=== PATIENT | male | born 1965 | race African-American/Black ===

== ENCOUNTER 2018-08-05 11:27 | Observation (INO) | payer OTHER ==
[~2018-08-05] VITALS: Ht 165.1 cm; Wt 81.7 kg
[~2018-08-05 11:27] MED LIST: [UNRECOGNIZED DRUG - REMARK] PO
[2018-08-05 12:21] LABS: BASOPHILS # (AUTO) 0.04 x10^3/uL (0-0.1); BASOPHILS % (AUTO) 1 % (0-1); EOSINOPHILS # (AUTO) 0.06 x10^3/uL (0-0.4); EOSINOPHILS % (AUTO) 1 % (1-7); LYMPHOCYTES # (AUTO) 1.46 x10^3/uL (1-3.4); LYMPHOCYTES % (AUTO) 31 % (22-44); MD NO; MEAN CORPUSCULAR HGB CONC 33.5 g/dL (33.2-36.2); MEAN CORPUSCULAR VOLUME 80.8 fL (81-97); MEAN PLATELET VOLUME 9.1 fL (7.4-10.4); MONOCYTES # (AUTO) 0.32 x10^3/uL (0.2-0.8); MONOCYTES % (AUTO) 7 % (2-9); NEUTROPHILS # (AUTO) 2.83 x10^3/uL (1.8-6.8); NEUTROPHILS % (AUTO) 60 % (42-75); PLATELET COUNT 296 x10^3/uL (130-400); RED BLOOD COUNT 5.59 x10^6/uL (4.38-5.82); RED CELL DISTRIBUTION WIDTH 14.3 % (9.4-14.8)
[2018-08-05 12:31] LABS: ALBUMIN 3.7 g/dL (3.4-5.0); ANION GAP 8 mmol/L (5-15); CALCIUM 8.3 mg/dL (8.5-10.1); CHLORIDE 111 mmol/L (98-107)
[2018-08-05 12:34] LABS: INTERNATIONAL NORMALIZED RATIO 1.04 (0.93-1.1); PARTIAL THROMBOPLASTIN TIME 28 Seconds (25-31)
[2018-08-05 12:36] LABS: ALANINE AMINOTRANSFERASE 61 U/L (12-78); ALKALINE PHOSPHATASE 122 U/L (45-117); BILIRUBIN,TOTAL 0.3 mg/dL (0.2-1.0); CREATININE 1.38 mg/dL (0.7-1.3); D-DIMER < 0.19 ug/mlFEU (0.00-0.52); TOTAL PROTEIN 7.8 g/dL (6.4-8.2)
[2018-08-05] MEDS ORDERED: SODIUM CHLORIDE FLUSH 10ML SYR IVF ONE (13:00)
[2018-08-05] MEDS ORDERED: LABETALOL 20 MG/4 ML ONE ×2 (13:21→16:25)
[2018-08-05] MEDS: LABETALOL 5MG/ML, 20ML IVPush ONE ×2 (13:23→13:30)
[2018-08-05] MEDS ORDERED: BISACODYL 10 MG SUPP PR PRN (14:30)
[2018-08-05] MEDS ORDERED: ASPIRIN 81 MG TABLET CHEW PO ONE (14:30)
[2018-08-05] MEDS ORDERED: POLYETHYLENE GLYCOL 17 GM PACKET PO PRN (14:30)
[2018-08-05] MEDS ORDERED: DOCUSATE 100 MG CAPSULE PO PRN (14:30)
[2018-08-05] MEDS ORDERED: ONDANSETRON 2MG/ML, 2ML IVPush PRN (14:30)
[2018-08-05] MEDS ORDERED: MORPHINE SULFATE 4 MG/ML, 1ML IVPush PRN (14:30)
[2018-08-05] MEDS ORDERED: ACETAMINOPHEN 325 MG TABLET PO PRN (14:30)
[2018-08-05] MEDS ORDERED: NITROGLYCERIN 0.4 MG BOTTLE (25 TABS) SL PRN (14:30)
[2018-08-05] MEDS ORDERED: hydrALAzine 20 MG/ML, 1ML IVPush PRN (14:30)
[2018-08-05] MEDS ORDERED: POTASSIUM CHLORIDE 20 MEQ TAB.ER.PRT PO ONE (15:00)
[2018-08-05 15:05] VITALS: BP 168/105
[2018-08-05 17:23] VITALS: BP 158/98
[2018-08-05 17:29] LABS: TROPONIN I 0.057 ng/mL (0.000-0.045)
[2018-08-05 19:15] VITALS: BP 142/85
[2018-08-05] MEDS ORDERED: SODIUM CHLORIDE FLUSH 10ML SYR IVF SCH (21:00)
[2018-08-06 04:50] LABS: ANION GAP 5 mmol/L (5-15); CALCIUM 8.4 mg/dL (8.5-10.1); CHLORIDE 109 mmol/L (98-107)
[2018-08-06 04:54] LABS: CHOLESTEROL, TOTAL 165 mg/dL (140-239); CREATININE 1.39 mg/dL (0.7-1.3); HDL CHOL % 25 % (26-37); HDL CHOLESTEROL (DIRECT) 41 mg/dL (40-60); LDL CHOLESTEROL,CALCULATED 106 mg/dL (54-169); LDL/HDL RATIO 2.6 (0.5-3.0); TRIGLYCERIDES 89 mg/dL (50-200); VLDL CHOLESTEROL 18 mg/dL (0-25)
[2018-08-06 04:59] VITALS: BP 130/82
[2018-08-06] MEDS: ASPIRIN 325 MG TABLET EC PO SCH ×2 (05:02→08:04)
[2018-08-06 12:50] VITALS: BP 148/87
[2018-08-06] MEDS ORDERED: LISI-167 PO (12:54)
== END 2018-08-06 15:30 | disposition home or self-care (01) ==
LOC: ED 14:25 → INTOOBSV 14:26 → EDIP 14:26 → 5SO 15:00 → DCLOUNGE 08-06 15:27
PROVIDERS: ADMIT Internal Medicine; ATTEND Internal Medicine
DX: R07.89 Other chest pain (principal); E87.6 Hypokalemia; I11.9 Hypertensive heart disease without heart failure; N17.9 Acute kidney failure, unspecified; I16.1 Hypertensive emergency; E03.9 Hypothyroidism, unspecified; F32.9 Major depressive disorder, single episode, unspecified; Z91.14 Patient's other noncompliance with medication regimen; Z82.49 Family history of ischemic heart disease and other diseases of the circulatory system; Z83.3 Family history of diabetes mellitus
CPT/HCPCS: 36415; 70450; 71045; 78452; 80048; 80053; 80061; 83690; 83880; 84439; 84443; 84484; 85025; 85379; 85610; 85730; 93005; 93017; 99285; A9502; C9898; G0378

== ENCOUNTER 2020-03-19 11:44 | Emergency (ER) | payer SELFPAY ==
[~2020-03-19] VITALS: Ht 167.6 cm; Wt 81.0 kg
[~2020-03-19 11:44] MED LIST changes: +LISI-167 PO
--- NOTE | 2020-03-19 13:01 | NUR ---
PT REPORTS THAT HE HAD SYNCOPAL EPISODE TODAY WITH DIZZINESS WHILE AT WORK. PT REPORTS BECOMING DIAPHORETIC BUT DENIED ANY NAUSEA, CP, OR SOB PRIRO TO PASSING. PT REPORTED TO TRIAGE THAT HE JUST WANTED TO HAVE RX FOR LISINOPRIL REFILLED.
--- NOTE | 2020-03-19 13:02 | NUR ---
PT ON HEART MONITOR AND EKG BEING DONE.
[2020-03-19] MEDS ORDERED: SODIUM CHLORIDE 0.9% 1,000ML IVBOLUS ONE (13:30)
[2020-03-19] MEDS ORDERED: SODIUM CHLORIDE FLUSH 10ML SYR IVF ONE (13:30)
[2020-03-19] MEDS ORDERED: LISINOPRIL 20 MG TABLET PO ONE (13:30)
[2020-03-19 13:46] LABS: BASOPHILS # (AUTO) 0.03 x10^3/uL (0-0.1); BASOPHILS % (AUTO) 1 % (0-1); EOSINOPHILS % (AUTO) 2 % (1-7); LYMPHOCYTES # (AUTO) 1.47 x10^3/uL (1-3.4); LYMPHOCYTES % (AUTO) 30 % (22-44); MD NO; MEAN CORPUSCULAR HEMOGLOBIN 26.3 pg (27.5-34.5); MEAN CORPUSCULAR HGB CONC 32.3 g/dL (33.2-36.2); MEAN CORPUSCULAR VOLUME 81.5 fL (81-97); MEAN PLATELET VOLUME 8.9 fL (7.4-10.4); MONOCYTES # (AUTO) 0.39 x10^3/uL (0.2-0.8); MONOCYTES % (AUTO) 8 % (2-9); NEUTROPHILS # (AUTO) 2.92 x10^3/uL (1.8-6.8); NEUTROPHILS % (AUTO) 59 % (42-75); PLATELET COUNT 276 x10^3/uL (130-400); RED BLOOD COUNT 5.25 x10^6/uL (4.38-5.82); RED CELL DISTRIBUTION WIDTH 15.2 % (9.4-14.8)
[2020-03-19] MEDS ORDERED: LISINOPRIL 10 MG TABLET ONE (13:47)
[2020-03-19 13:50] LABS: ALANINE AMINOTRANSFERASE 54 U/L (12-78); ALBUMIN 3.8 g/dL (3.4-5.0); ANION GAP 6 mmol/L (5-15); CALCIUM 9.1 mg/dL (8.5-10.1); CHLORIDE 106 mmol/L (98-107); CREATININE 1.76 mg/dL (0.7-1.3)
[2020-03-19 13:55] LABS: ALKALINE PHOSPHATASE 101 U/L (45-117); BILIRUBIN,TOTAL 0.5 mg/dL (0.2-1.0); TROPONIN I 0.088 ng/mL (0.000-0.045)
[2020-03-19] MEDS ORDERED: POTASSIUM CHLORIDE 20 MEQ TAB.ER.PRT ONE (14:16)
[2020-03-19] MEDS ORDERED: POTASSIUM CHLORIDE 20 MEQ TAB.ER.PRT PO ONE (14:30)
[2020-03-19 14:47] VITALS: BP 153/97
== END 2020-03-19 14:49 | disposition home or self-care (01) ==
LOC: ED 14:18
DX: R55 Syncope and collapse (principal); I10 Essential (primary) hypertension; R79.89 Other specified abnormal findings of blood chemistry; R94.31 Abnormal electrocardiogram [ECG] [EKG]
CPT/HCPCS: 36415; 80053; 83735; 84484; 85025; 93005; 99284; J7030